=== PATIENT | female | born 1940 | race Caucasian/White ===

== ENCOUNTER → 2024-03-18 12:59 | Outpatient (REF) | payer OTHER, SELFPAY | LOC: HWRAD 12:59 | PROVIDERS: ATTENDING PHYSICIAN Internal Medicine Hematology & Oncology; FAMILY PHYSICIAN Family Medicine | DX: C67.8 Malignant neoplasm of overlapping sites of bladder (principal); D51.9 Vitamin B12 deficiency anemia, unspecified | CPT/HCPCS: 71260; 74177; Q9967 ==

== ENCOUNTER → 2025-04-01 12:39 | Outpatient (REF) | payer OTHER, SELFPAY | LOC: RAD 12:39 | PROVIDERS: ATTENDING PHYSICIAN Internal Medicine Hematology & Oncology; FAMILY PHYSICIAN Family Medicine | DX: C67.8 Malignant neoplasm of overlapping sites of bladder (principal); D51.9 Vitamin B12 deficiency anemia, unspecified | CPT/HCPCS: 71260; 74177; Q9967 ==